=== PATIENT | female | born 1965 | race Caucasian/White ===

== ENCOUNTER 2021-03-09 15:32 | Emergency (ER) | payer OTHER, SELFPAY ==
[2021-03-09 15:34] VITALS: BP 119/77; PULSE 95; RESP 20; TEMP 36.8; O2SAT 100
--- NOTE | 2021-03-09 16:42 | ED.GENADULT ---
HPI - General Adult General Chief complaint: Headache Stated complaint: migraine x 5 days Time Seen by Provider: 03/09/21 15:40 Source: patient History of Present Illness HPI narrative: Patient is a 55 y/o female complaining of left sided headache for about 5 days. She describes her pain as sharp and rates it as 9/10. She took OTC medication for pain and Flexeril prescribed by urgent care. However, these medication did no help. She has no nausea, vomiting, focal weakness or numbness. Related Data Allergies Allergy/AdvReac Type Severity Reaction Status Date / Time No Known Allergies Allergy Verified 03/09/21 15:43 Review of Systems Review of Systems: All systems reviewed & are unremarkable except as noted in HPI and below Constitutional: Constitutional: Denies chills, Denies fever(s), Denies headache(s) and Denies weakness Eyes: Eyes: Denies blurry vision ENT: Denies headache(s) and Denies neck pain Cardiovascular: Cardiovascular: Denies chest pain and Denies dyspnea Respiratory: Respiratory: Denies cough and Denies dyspnea Gastrointestinal: Gastrointestinal: Denies abdominal pain, Denies diarrhea, Denies nausea and Denies vomiting Genitourinary: Genitourinary: Denies hematuria and Denies dysuria Musculoskeletal: Musculoskeletal: Denies back pain and Denies neck pain Neurologic: Denies headache(s) and Denies weakness [facility] Social History Social History Gender identity (if verbalized by the patient): Female Exam Const: General: no acute distress and well developed Orientation/consciousness: oriented to person, oriented to place, oriented to time and patient oriented x3 HENMT: Head: normocephalic Ears: external ears normal General nose exam: Normal external nose present Eyes: General: appearance normal, both eyes and all related structures Conjunctivae: conjunctivae normal Neck: Neck: normal visual inspection and full ROM Chest: Chest palpation & inspection: normal inspection of the chest and no tenderness Resp: Effort & Inspection: normal respiratory effort Auscultation: clear to auscultation bilaterally Cardio: Rate: regular rate Rhythm: regular rhythm GI: GI Palp: No abdominal tenderness and Yes Soft to palpation Skin: General skin exam: normal color and turgor normal Neuro: General: oriented to person, oriented to place, oriented to time and patient oriented x3 Cognition (Neuro): normal cognition Motor exam (neuro): 5/5 motor strength present throughout Sensory Exam: normal sensation Extrem: General: normal to inspection, full ROM and no pedal edema Psych: Appearance: grossly normal Mental Status: mental status grossly normal Affect: normal affect Course Reevaluation(s) Reevaluation #1: Rechecked. Patient feels better. She states that she has no headache at this time. Date: 03/09/21 Time: 18:54 Vital Signs Vital signs: Vital Signs Temperature 36.8 C 03/09/21 15:34 Pulse Rate 95 03/09/21 15:34 Respiratory Rate 20 03/09/21 15:34 Blood Pressure 119/77 03/09/21 15:34 Pulse Oximetry 100 03/09/21 15:34 Temperature 36.8 C 03/09/21 15:34 Pulse Rate 95 03/09/21 15:34 Respiratory Rate 20 03/09/21 15:34 Blood Pressure 119/77 03/09/21 15:34 Pulse Oximetry 100 03/09/21 15:34 Medical Decision Making Vital Signs Vital Signs: Vital Signs Temperature 36.8 C 03/09/21 15:34 Pulse Rate 95 03/09/21 15:34 Respiratory Rate 20 03/09/21 15:34 Blood Pressure 119/77 03/09/21 15:34 Pulse Oximetry 100 03/09/21 15:34 Temperature 36.8 C 03/09/21 15:34 Pulse Rate 95 03/09/21 15:34 Respiratory Rate 20 03/09/21 15:34 Blood Pressure 119/77 03/09/21 15:34 Pulse Oximetry 100 03/09/21 15:34 Lab Data Result diagrams: 03/09/21 16:49 03/09/21 16:49 Labs: Lab Results 03/09/21 03/09/21 Range/Units 16:49 16:49 WBC 3.7 L (4.5-10.0) K/mm3 RBC
[2021-03-09] MEDS: diphenhydrAMINE HCl INJ 50 MG/ML VIAL 25 MG IV PUSH (16:50)
[2021-03-09] MEDS: KETOROLAC 30 MG/ML VIAL (*BKC) IV PUSH (16:51)
[2021-03-09] MEDS: SODIUM CHLORIDE 0.9% IV 1,000 ML 999 ML IV CONT (16:52)
[2021-03-09] MEDS: METOCLOPRAMIDE HCL 10 MG TABLET PO (16:57)
[2021-03-09 17:02] LABS: Basophils Percent Auto 0.3 % (0.2-1.2); Hematocrit 41.7 % (37.0-47.0); Hemoglobin 13.8 g/dL (12.0-15.0); Lymphocytes Absolute Auto 1.65 K/mm3 (0.9-3.2); Lymphocytes Percent Auto 44.4 % (18.3-44.2); Mean Corpuscular HGB Conc 33.1 g/dl (32-36); Mean Corpuscular Volume 87.6 fl (80-100); Mean Platelet Volume 9.6 fl (7.4-10.4); Monocytes Absolute Auto 0.7 K/mm3 (0.1-0.6); Monocytes Percent Auto 18.3 % (2.6-8.5); Neutrophils Absolute Auto 1.4 K/mm3 (1.3-6.7); Platelet Count Result 185 k/mm3 (150-375); Red Blood Count 4.76 M/mm3 (4.2-5.4); Red Cell Distribution Width 11.9 % (11.5-14.5); White Blood Count 3.7 K/mm3 (4.5-10.0)
[2021-03-09 17:20] LABS: Anion Gap 9 mmol/L (8-16); Blood Urea Nitrogen 11 mg/dL (7-17); Calcium 9.2 mg/dL (8.4-10.2); Carbon Dioxide 29 mmol/L (22-30); Chloride 99 mmol/L (98-107); Estimated CRCL calculation 81 ml/min; Estimated Glomerular Filt Rate > 60; Glucose 103 mg/dL (65-110); Potassium 3.8 mmol/L (3.4-5.0); Sodium 137 mmol/L (137-145)
[2021-03-09 19:04] VITALS: BP 122/80; PULSE 92; RESP 18; O2SAT 100
== END 2021-03-09 19:06 | disposition home or self-care (01) ==
PROVIDERS: Emergency Provider Emergency Medicine
DX: G43.909 Migraine, unspecified, not intractable, without status migrainosus (principal)
CPT/HCPCS: 36415; 80048; 85025; 96361; 96374; 96375; 99284; A9270; J1200; J1885; J7030